=== PATIENT | female | born 1945 | race Caucasian/White ===

== ENCOUNTER 2016-07-13 16:18 | Emergency (ER) | payer OTHER ==
[~2016-07-13] VITALS: Ht 160 cm; Wt 91.2 kg
[2016-07-13 16:55] VITALS: BP 118/79
[2016-07-13] MEDS ORDERED: ASPIRIN81 M1 PO (16:59)
[2016-07-13] MEDS ORDERED: HUMALOG SL100 UNITS/ (16:59)
--- NOTE | 2016-07-13 17:05 | NUR ---
PATIENT AMBULATED TO ER BED 5.
--- NOTE | 2016-07-13 17:07 | NUR ---
Patient being evaluated by physician at bedside.
--- NOTE | 2016-07-13 17:08 | NUR ---
PT CAME TO ER DUE TO LEFT HIP PAIN X2 DAYS;OAIN SCALE OF 10/10.PT STATES SHE HAD A RT TOTAL HIP REPLACEMENT YEARS AGO.DENIES TRAUMA/CP/SOB/F/N/V/D.DENIES TINGLING OR NUMBNESS SENSATION ON LOWER LEGS.PT USES WALKER FOR AMBULATION.HX OF DM,HTN.NO ACUTE DISTRESS NOTED AT THIS TIME;NEDS ATTENDED;SAFETY PREACUTION INSTITUTED; AT BEDSIDE
--- NOTE | 2016-07-13 17:10 | NUR ---
PT REFUSED TO PUT AN IV AT THE MOMENT.
--- NOTE | 2016-07-13 17:20 | NUR ---
PT WENT TO CT ACCOMPANIED BY ASSISTANT HOUSEKEEPING MANAGER
--- NOTE | 2016-07-13 17:27 | NUR ---
Note batool in EDM - 07/13/16 at 1728 by IVANNA Patient discharged with v/s stable. Written and verbal after care instructions given and explained.Patient alert, oriented and verbalized understanding of instructions. Ambulatory with steady gait. All questions addressed prior to discharge. ID band removed. Patient advised to follow up with PMD.Opportunity to ask questions provided and answered.ENCOURAGED PT TO INCREASE FLUID INTAKE AND PT AGREED W/ IT.
--- NOTE | 2016-07-13 17:38 | NUR ---
BACK FROM CT;NO ACUTE DISTRESS NOTED AT THIS TIME;WILL CONTINUE TO MONITOR PT.
--- NOTE | 2016-07-13 18:29 | NUR ---
PT LYING ON BED; NO ACUTE DISTRESS NOTED AT THIS TIME;WILL CONTINUE TO MONITOR PT.
--- NOTE | 2016-07-13 19:16 | NUR ---
Patient discharged with v/s stable. Written and verbal after care instructions given and explained. Patient alert, oriented and verbalized understanding of instructions. Ambulatory with steady gait. All questions addressed prior to discharge. ID band removed. Patient advised to follow up with PMD. Rx of TRAMADOL given. Patient educated on indication of medication including possible reaction and side effects. Opportunity to ask questions provided and answered.ADVISED PT TO REFRAIN FROM BEARING WEIGHT ON AFFECTED HIP.
[2016-07-13 19:18] VITALS: BP 154/79
== END 2016-07-13 19:18 | disposition home or self-care (01) ==
LOC: MED 16:18
DX: M25.552 Pain in left hip (principal); Z98.890 Other specified postprocedural states

== ENCOUNTER 2017-12-07 07:35 | Emergency (ER) | payer OTHER ==
[~2017-12-07] VITALS: Ht 160 cm; Wt 87.5 kg
[~2017-12-07 07:35] MED LIST: ASPI81CT89 PO; HUMSLIDE
[2017-12-07 07:36] VITALS: BP 149/74
--- NOTE | 2017-12-07 07:36 | NUR ---
PT TAKEN BY WHEELCHAIR TO ER BED 05
--- NOTE | 2017-12-07 07:40 | NUR ---
72YO F BIB DAUGHTER IN LAW W/C/O CENTRAL LOWER BACK PAIN. PT STATES HX OF CHRONIC LBP PAIN , WITH INCREASED PAIN IN PAST WEEK DUE TO " CERTENT AMOUT OF LIFTING " WITH DISABLED . PAIN 10/05. PT DENIES ANY CP, SOB ABD PAIN, FEVER COUGH OR COLDS AT THIS TIME. PT STATE TAKING HYDROCODONE AT HOME FOR PAIN. ERMD MADE AWARE. WILL CONTINUE TO MONITOR. PT PLACED IN GOWN AND POSITIONED FOR COMFORT.
--- NOTE | 2017-12-07 07:48 | NUR ---
CONTACT INFO FOR DAUGHTER IN LAW: DANA [phone]
--- NOTE | 2017-12-07 07:50 | NUR ---
Patient being evaluated by physician at bedside.
--- NOTE | 2017-12-07 07:59 | NUR ---
PT TAKEN TO CT
--- NOTE | 2017-12-07 08:16 | NUR ---
PT RETURNED FROM CT
--- NOTE | 2017-12-07 08:24 | NUR ---
PT AMBULATED TO BATHTOMM WITH MINIMAL ASSISST
[2017-12-07] MEDS ORDERED: KETOROLAC 30 MG/ML VIAL IM ONE (08:45)
[2017-12-07] MEDS ORDERED: METHOCARBAMOL 500 MG TAB PO ONE (09:25)
--- NOTE | 2017-12-07 10:00 | NUR ---
dr pulido at bedside speaking with pt
[2017-12-07 10:10] VITALS: BP 145/76
--- NOTE | 2017-12-07 10:10 | NUR ---
Patient discharged with v/s stable. Written and verbal after care instructions given and explained. Patient alert, oriented and verbalized understanding of instructions. Ambulatory with ASSIST . All questions addressed prior to discharge. ID band removed. Patient advised to follow up with PMD. Rx of LIDOCAINE 5% TRANSDERMAL PATCH, CELEBREX, ROBAXIN given. Patient educated on indication of medication including possible reaction and side effects. Opportunity to ask questions provided and answered.
== END 2017-12-07 10:10 | disposition home or self-care (01) ==
LOC: MED 07:35
DX: M62.830 Muscle spasm of back (principal); I10 Essential (primary) hypertension; E11.9 Type 2 diabetes mellitus without complications; Z79.1 Long term (current) use of non-steroidal anti-inflammatories (NSAID)
CPT/HCPCS: 72131; 96372; 99284; J1885

== ENCOUNTER 2018-08-07 16:49 | Emergency (ER) | payer OTHER ==
[~2018-08-07] VITALS: Ht 160 cm; Wt 87.5 kg
[~2018-08-07 16:49] MED LIST changes: +ASPI-1718 PO; -ASPI81CT89 PO
[2018-08-07 17:01] VITALS: BP 103/64
[2018-08-07 18:13] LABS: BASOPHILS % (AUTO) 0.4 % (0.0-2.0); EOSINOPHILS % (AUTO) 0.5 % (0.0-4.0); HEMATOCRIT 41.1 % (36-48); HEMOGLOBIN 14.1 g/dL (12.0-16.0); LYMPHOCYTES % (AUTO) 11.7 % (20.5-51.1); MEAN CORPUSCULAR HEMOGLOBIN 31 pg (27-31); MEAN CORPUSCULAR HGB CONC 34 g/dL (33-37); MONOCYTES # (AUTO) 0.6 K/uL (0.8-1.0); MONOCYTES % (AUTO) 6.6 % (1.7-9.3); NEUTROPHILS # (AUTO) 7.2 K/uL (1.8-7.7); NEUTROPHILS % (AUTO) 80.8 % (42.2-75.2); PLATELET COUNT (AUTO) 216 K/uL (140-450); RED BLOOD CELL COUNT(AUTO) 4.62 MIL/uL (4.20-5.40); RED CELL DISTRIBUTION WIDTH 13.9 % (11.6-13.7); WHITE BLOOD COUNT (AUTO) 8.9 K/uL (4.8-10.8)
[2018-08-07 18:14] LABS: APPEARANCE,URINE CLEAR (CLEAR); BILIRUBIN,URINE NEGATIVE (NEGATIVE); BLOOD, URINE NEGATIVE (NEGATIVE); COLOR,URINE YELLOW (YELLOW); LEUKOCYTE ESTERASE ,URINE TRACE (NEGATIVE); NITRITE, URINE NEGATIVE (NEGATIVE); UGLUCOSE 2+ (NEGATIVE)
[2018-08-07 18:31] LABS: RBC,URINE 0-5 /HPF (0-5); WBC,URINE >25 (MANY) /HPF (0-5)
[2018-08-07 18:32] LABS: ALBUMIN 3.5 g/dL (3.4-5.0); ANION GAP 16.7 (8-16); ASPARTATE AMINOTRANSFERASE 22 U/L (15-37); CARBON DIOXIDE 24.3 mmol/L (21-32); CHLORIDE 102 mmol/L (98-107); CREATININE 0.7 mg/dL (0.6-1.3); GLUCOSE 295 mg/dL (74-106); LIPASE 108 U/L (73-393); SODIUM SERUM 139 mmol/L (136-145); TOTAL BILIRUBIN 0.5 mg/dL (0.0-1.0); UREA NITROGEN, BLOOD 19 mg/dL (7-18)
--- NOTE | 2018-08-07 19:15 | NUR ---
Shaw renae in [facility] - 08/07/18 at 2041 by JIMENEZ ASSUMED CARE OF PT FROM REJI BRITO
[2018-08-07 19:40] VITALS: BP 106/56
--- NOTE | 2018-08-07 20:32 | NUR ---
TO ED WITH C/O RUQ PAIN WITH NAUSEA AND VOMITTING X 5 DAYS. PT REPORTS PAIN UPON PALPATION. BOWEL SOUNDS ACTIVE TO ALL QUADRANTS. PT PLACED INTO BED, PENDING MD KELLER.
--- NOTE | 2018-08-07 22:22 | NUR ---
Patient discharged with v/s stable. Written and verbal after care instructions given and explained. Patient alert, oriented and verbalized understanding of instructions. Ambulatory with steady gait. All questions addressed prior to discharge. ID band removed. Patient advised to follow up with PMD. Rx of CIPROFLAXIN given. Patient educated on indication of medication including possible reaction and side effects. Opportunity to ask questions provided and answered.
== END 2018-08-07 22:22 | disposition home or self-care (01) ==
LOC: MED 16:49
DX: N39.0 Urinary tract infection, site not specified (principal); E11.9 Type 2 diabetes mellitus without complications; I10 Essential (primary) hypertension; Z79.4 Long term (current) use of insulin; Z79.82 Long term (current) use of aspirin
CPT/HCPCS: 36415; 80053; 81001; 83690; 85025; 87086; 99284

== ENCOUNTER 2020-01-07 04:20 | Emergency (ER) | payer OTHER ==
[~2020-01-07] VITALS: Ht 160 cm; Wt 88.5 kg
[~2020-01-07 04:20] MED LIST changes: -ASPI-1718 PO; +ASPI-1822 PO
[2020-01-07 04:35] VITALS: BP 135/57
[2020-01-07] MEDS ORDERED: IBUPROFEN 800 MG TAB PO ONE (05:10)
[2020-01-07] MEDS ORDERED: SULFAMETH/TRIMETH DS 800/160MG 1 TAB PO ONE (05:10)
--- NOTE | 2020-01-07 05:24 | NUR ---
X-Ray at bedside.
--- NOTE | 2020-01-07 05:30 | NUR ---
PT HAD SURGERY TO 3 TOES ON HER L FOOT 1 WEEK AGO, NOW SHE IS HAVING 10/10 PAIN AND STATES THERE IS DRAINAGE/DISCHARGE TO AREA. WORRIED OF POSSIBLE INFECTION. UNABLE TO PUT PRESSURE ON L FOOT DUE TO PAIN. PAIN RADIATING FROM TOES UP INTO L FOOT. SITE IS DRY, NO DRAINAGE NOTED, SUTURES INTACT, AREA LOOKS LIKE IT IS HEALING WITHOUT ISSUES. NO REDNESS TO FOOT, NO SWELLING, PALPABLE PEDAL PULSE. AREA SORE WHEN TOUCHED. AFEBRILE, NO N/V/D. BED IN LOWEST POSITION AND SIDERAIL UP X 1. NKA HX - DM, HTN
[2020-01-07 06:32] VITALS: BP 135/57
--- NOTE | 2020-01-07 06:33 | NUR ---
Patient discharged with v/s stable. Written and verbal after care instructions given and explained. Patient alert, oriented and verbalized understanding of instructions. Ambulatory with steady gait. All questions addressed prior to discharge. ID band removed. Patient advised to follow up with PMD. Rx of MOTRIN AND BACTRIM given. Patient educated on indication of medication including possible reaction and side effects. Opportunity to ask questions provided and answered.
== END 2020-01-07 06:33 | disposition home or self-care (01) ==
LOC: MED 04:20
DX: L03.115 Cellulitis of right lower limb (principal); E11.9 Type 2 diabetes mellitus without complications; I10 Essential (primary) hypertension; Z79.899 Other long term (current) drug therapy
CPT/HCPCS: 73630; 99283; Q0092

== ENCOUNTER 2020-05-03 14:34 | Inpatient (IN) | payer OTHER, SELFPAY ==
[~2020-05-03] VITALS: Ht 160 cm; Wt 90.7 kg
[2020-05-03] MEDS ORDERED: AZITHROMYCIN 500 MG in DEXTROSE 5% 250 ML IV ONE (15:30)
[2020-05-03] MEDS ORDERED: ONDANSETRON 4 MG/2 ML VIAL IVP ONE (15:30)
[2020-05-03] MEDS ORDERED: DEXAMETHASONE 4 MG/ML VIAL IVP ONE (15:30)
[2020-05-03 16:03] LABS: BASOPHILS % (AUTO) 0.6 % (0.0-2.0); HEMOGLOBIN 13.7 g/dL (12.0-16.0); LYMPHOCYTES # (AUTO) 0.5 K/uL (2.5-16.5); LYMPHOCYTES % (AUTO) 10.1 % (20.5-51.1); MEAN CORPUSCULAR HEMOGLOBIN 30 pg (27-31); MEAN CORPUSCULAR HGB CONC 34 g/dL (33-37); MEAN CORPUSCULAR VOLUME 87.2 fL (80-94); MONOCYTES # (AUTO) 0.3 K/uL (0.8-1.0); MONOCYTES % (AUTO) 6.7 % (1.7-9.3); NEUTROPHILS # (AUTO) 3.7 K/uL (1.8-7.7); NEUTROPHILS % (AUTO) 82.6 % (42.2-75.2); PLATELET COUNT (AUTO) 167 K/uL (140-450); RED BLOOD CELL COUNT(AUTO) 4.59 MIL/uL (4.20-5.40); RED CELL DISTRIBUTION WIDTH 14.7 % (11.6-13.7); WHITE BLOOD COUNT (AUTO) 4.5 K/uL (4.8-10.8)
[2020-05-03 16:23] LABS: PROTHROMBIN TIME 10.1 secs (10.8-13.4)
[2020-05-03 16:37] LABS: ALBUMIN 3.4 g/dL (3.4-5.0); ANION GAP 16.7 (8-16); ASPARTATE AMINOTRANSFERASE 39 U/L (15-37); CARBON DIOXIDE 23.7 mmol/L (21-32); CHLORIDE 97 mmol/L (98-107); CREATININE 0.8 mg/dL (0.6-1.3); GLUCOSE 178 mg/dL (74-106); LACTATE DEHYDROGENASE 332 U/L (81-234); POTASSIUM 3.4 mmol/L (3.5-5.1); SODIUM SERUM 134 mmol/L (136-145); TOTAL BILIRUBIN 0.5 mg/dL (0.0-1.0); UREA NITROGEN, BLOOD 11 mg/dL (7-18)
[2020-05-03 16:46] VITALS: BP 143/63
[2020-05-03] MEDS ORDERED: ALBUTEROL HFA MDI 90 MCG/ACTUATION 8 GM INH ONE (17:20)
[2020-05-03] MEDS ORDERED: AZITHROMYCIN 500 MG INJ VIAL IV ONE (17:38)
[2020-05-03] MEDS ORDERED: ONDANSETRON 4 MG/2 ML VIAL ONE (17:38)
[2020-05-03] MEDS ORDERED: DEXAMETHASONE 10 MG/ML VIAL ONE (17:39)
[2020-05-03] MEDS ORDERED: cefTRIAXone 1,000 MG VIAL ONE (17:39)
[2020-05-03 20:37] LABS: APPEARANCE,URINE CLEAR (CLEAR); BILIRUBIN,URINE 1+ (NEGATIVE); BLOOD, URINE NEGATIVE (NEGATIVE); COLOR,URINE YELLOW (YELLOW); LEUKOCYTE ESTERASE ,URINE NEGATIVE (NEGATIVE); NITRITE, URINE NEGATIVE (NEGATIVE); UGLUCOSE 3+ (NEGATIVE)
[2020-05-03 21:10] LABS: RBC,URINE 0-5 /HPF (0-5); WBC,URINE 0-5 /HPF (0-5); YEAST,URINE Few /HPF (None Seen)
[2020-05-03] MEDS: INSULIN LISPRO SLIDING SCALE 100 UNITS/ML VIAL SUBQ PRN (23:00)
[2020-05-03] MEDS: DEXAMETHASONE 4 MG/ML VIAL IVP SCH (23:19)
[2020-05-04] MEDS ORDERED: DAPA10TA PO (06:45)
[2020-05-04] MEDS ORDERED: HYDR25TA32 PO (06:53)
[2020-05-04] MEDS ORDERED: INSU10SU6 SUBQ (06:53)
[2020-05-04] MEDS: BLOOD GLUCOSE MONITORING 1 DEV DEV FS SCH ×4 (07:58→21:51)
[2020-05-04] MEDS: ASPIRIN 81 MG TAB.CHEW PO SCH (08:32)
[2020-05-04] MEDS: ENOXAPARIN 40 MG/0.4 ML SYR SUBQ SCH ×2 (08:33→21:53)
[2020-05-04] MEDS: INSULIN LISPRO SLIDING SCALE 100 UNITS/ML VIAL SUBQ PRN ×3 (08:34→16:45)
[2020-05-04 09:54] LABS: BASOPHILS % (AUTO) 0.1 % (0.0-2.0); HEMATOCRIT 40.7 % (36-48); HEMOGLOBIN 13.7 g/dL (12.0-16.0); LYMPHOCYTES # (AUTO) 0.4 K/uL (2.5-16.5); LYMPHOCYTES % (AUTO) 16.9 % (20.5-51.1); MEAN CORPUSCULAR HEMOGLOBIN 30 pg (27-31); MEAN CORPUSCULAR HGB CONC 34 g/dL (33-37); MEAN CORPUSCULAR VOLUME 87.8 fL (80-94); MONOCYTES # (AUTO) 0.1 K/uL (0.8-1.0); MONOCYTES % (AUTO) 3.6 % (1.7-9.3); NEUTROPHILS # (AUTO) 1.8 K/uL (1.8-7.7); NEUTROPHILS % (AUTO) 79.4 % (42.2-75.2); PLATELET COUNT (AUTO) 169 K/uL (140-450); RED BLOOD CELL COUNT(AUTO) 4.63 MIL/uL (4.20-5.40); RED CELL DISTRIBUTION WIDTH 14.5 % (11.6-13.7); WHITE BLOOD COUNT (AUTO) 2.3 K/uL (4.8-10.8)
[2020-05-04] MEDS ORDERED: CARV25TA PO (10:38)
[2020-05-04] MEDS ORDERED: METH750T9 PO (10:38)
[2020-05-04] MEDS ORDERED: ATOR20TA PO (10:38)
[2020-05-04] MEDS ORDERED: LON10 PO (10:38)
[2020-05-04] MEDS ORDERED: GABA300C PO (10:38)
[2020-05-04] MEDS ORDERED: LOSA50TA57 PO (10:38)
[2020-05-04] MEDS ORDERED: HYDR-1098 PO (10:38)
[2020-05-04] MEDS ORDERED: AMLO10TA PO (10:38)
[2020-05-04 10:49] LABS: ASPARTATE AMINOTRANSFERASE 35 U/L (15-37); CARBON DIOXIDE 25.8 mmol/L (21-32); CHLORIDE 101 mmol/L (98-107); CREATININE 0.7 mg/dL (0.6-1.3); GLUCOSE 253 mg/dL (74-106); MAGNESIUM 1.8 mg/dL (1.8-2.4); POTASSIUM 3.8 mmol/L (3.5-5.1); SODIUM SERUM 136 mmol/L (136-145); TOTAL BILIRUBIN 0.3 mg/dL (0.0-1.0); UREA NITROGEN, BLOOD 17 mg/dL (7-18)
[2020-05-04] MEDS: guaiFENesin DM 200/20 MG-10 ML 10 ML UDC PO PRN (13:03)
[2020-05-04] MEDS ORDERED: cefTRIAXone 1,000 MG VIAL ONE (14:40)
[2020-05-04] MEDS ORDERED: AZITHROMYCIN 500 MG INJ VIAL IV ONE (15:17)
[2020-05-04] MEDS: AZITHROMYCIN 500 MG in DEXTROSE 5% 250 ML IV SCH (15:26)
[2020-05-04] MEDS ORDERED: CLONIDINE HYDROCHLORIDE 0.1 MG TAB PO PRN (20:55)
[2020-05-04] MEDS: DEXAMETHASONE 4 MG/ML VIAL IVP SCH (21:56)
[2020-05-05] MEDS: BLOOD GLUCOSE MONITORING 1 DEV DEV FS SCH ×4 (07:30→20:57)
[2020-05-05] MEDS ORDERED: INSULIN LANTUS 100 UNITS/ML 10 ML VIAL SUBQ SCH (09:00)
[2020-05-05] MEDS: ASPIRIN 81 MG TAB.CHEW PO SCH (09:28)
[2020-05-05] MEDS: ENOXAPARIN 40 MG/0.4 ML SYR SUBQ SCH (09:57)
[2020-05-05] MEDS: INSULIN LISPRO SLIDING SCALE 100 UNITS/ML VIAL SUBQ PRN ×4 (09:59→21:01)
[2020-05-05] MEDS ORDERED: PHARMACY TO DOSE MC PRN (13:50)
[2020-05-05] MEDS ORDERED: remdesivir CLINICAL MONITORING 1 EA MISC MC PRN (14:05)
[2020-05-05] MEDS ORDERED: cefTRIAXone 1,000 MG VIAL ONE (15:14)
[2020-05-05] MEDS ORDERED: AZITHROMYCIN 500 MG INJ VIAL IV ONE (15:15)
[2020-05-05] MEDS: AZITHROMYCIN 500 MG in DEXTROSE 5% 250 ML IV SCH (15:34)
[2020-05-05] MEDS ORDERED: REMDESIVIR (EUA) 200 MG in NACL 0.9% 100 ML IV SCH (17:00)
[2020-05-05 17:57] LABS: BASOPHILS % (AUTO) 0.5 % (0.0-2.0); HEMATOCRIT 38.8 % (36-48); HEMOGLOBIN 13.3 g/dL (12.0-16.0); LYMPHOCYTES # (AUTO) 0.6 K/uL (2.5-16.5); LYMPHOCYTES % (AUTO) 6.7 % (20.5-51.1); MEAN CORPUSCULAR HEMOGLOBIN 30 pg (27-31); MEAN CORPUSCULAR HGB CONC 34 g/dL (33-37); MEAN CORPUSCULAR VOLUME 86.4 fL (80-94); MONOCYTES # (AUTO) 0.5 K/uL (0.8-1.0); MONOCYTES % (AUTO) 4.8 % (1.7-9.3); NEUTROPHILS # (AUTO) 8.4 K/uL (1.8-7.7); PLATELET COUNT (AUTO) 218 K/uL (140-450); RED CELL DISTRIBUTION WIDTH 14.7 % (11.6-13.7); WHITE BLOOD COUNT (AUTO) 9.6 K/uL (4.8-10.8)
[2020-05-05 18:15] LABS: ALBUMIN 2.7 g/dL (3.4-5.0); ANION GAP 10.1 (8-16); ASPARTATE AMINOTRANSFERASE 38 U/L (15-37); CARBON DIOXIDE 28.3 mmol/L (21-32); CHLORIDE 101 mmol/L (98-107); CREATININE 0.7 mg/dL (0.6-1.3); GLUCOSE 213 mg/dL (74-106); POTASSIUM 3.4 mmol/L (3.5-5.1); SODIUM SERUM 136 mmol/L (136-145); TOTAL BILIRUBIN 0.4 mg/dL (0.0-1.0); UREA NITROGEN, BLOOD 15 mg/dL (7-18)
[2020-05-05] MEDS: ENOXAPARIN 80 MG/0.8 ML SYR SUBQ SCH (21:04)
[2020-05-05] MEDS ORDERED: guaiFENesin/CODEINE 100/10MG 5 ML UDC ONE (21:34)
[2020-05-05] MEDS: guaiFENesin DM 200/20 MG-10 ML 10 ML UDC PO PRN (21:39)
[2020-05-05] MEDS: DEXAMETHASONE 4 MG/ML VIAL IVP SCH (23:07)
[2020-05-06 01:00] VITALS: BP 157/62
[2020-05-06] MEDS: INSULIN LISPRO SLIDING SCALE 100 UNITS/ML VIAL SUBQ PRN ×3 (07:11→17:33)
[2020-05-06] MEDS: BLOOD GLUCOSE MONITORING 1 DEV DEV FS SCH ×4 (07:18→21:31)
[2020-05-06 08:00] VITALS: BP 152/60
[2020-05-06] MEDS ORDERED: INSULIN LANTUS 100 UNITS/ML 10 ML VIAL SUBQ SCH (09:00)
[2020-05-06 09:54] LABS: BASOPHILS % (AUTO) 0.1 % (0.0-2.0); HEMATOCRIT 38.6 % (36-48); HEMOGLOBIN 13.3 g/dL (12.0-16.0); LYMPHOCYTES # (AUTO) 0.4 K/uL (2.5-16.5); LYMPHOCYTES % (AUTO) 3.9 % (20.5-51.1); MEAN CORPUSCULAR HEMOGLOBIN 30 pg (27-31); MEAN CORPUSCULAR HGB CONC 34 g/dL (33-37); MEAN CORPUSCULAR VOLUME 86.8 fL (80-94); MONOCYTES # (AUTO) 0.2 K/uL (0.8-1.0); PLATELET COUNT (AUTO) 226 K/uL (140-450); RED BLOOD CELL COUNT(AUTO) 4.45 MIL/uL (4.20-5.40); RED CELL DISTRIBUTION WIDTH 14.7 % (11.6-13.7); WHITE BLOOD COUNT (AUTO) 9.6 K/uL (4.8-10.8)
[2020-05-06] MEDS: ENOXAPARIN 80 MG/0.8 ML SYR SUBQ SCH ×2 (10:04→21:31)
[2020-05-06 10:15] LABS: ALBUMIN 2.6 g/dL (3.4-5.0); ANION GAP 13.2 (8-16); ASPARTATE AMINOTRANSFERASE 39 U/L (15-37); CARBON DIOXIDE 27.3 mmol/L (21-32); CHLORIDE 100 mmol/L (98-107); CHOL/HDL RATIO 3.3 (1-4.5); CREATININE 0.6 mg/dL (0.6-1.3); GLUCOSE 284 mg/dL (74-106); HDL CHOLESTEROL 49 mg/dL (40-60); LDL (CALC) 98 mg/dL (60-100); POTASSIUM 3.5 mmol/L (3.5-5.1); SODIUM SERUM 137 mmol/L (136-145); TOTAL BILIRUBIN 0.4 mg/dL (0.0-1.0); TRIGLYCERIDES 70 mg/dL (30-150); UREA NITROGEN, BLOOD 13 mg/dL (7-18)
[2020-05-06 11:00] LABS: ALBUMIN 2.6 g/dL (3.4-5.0); BILIRUBIN,DIRECT 0.1 mg/dL (0.0-0.3); TOTAL BILIRUBIN 0.4 mg/dL (0.0-1.0)
[2020-05-06 12:00] VITALS: BP 151/53
[2020-05-06 16:00] VITALS: BP 149/64
[2020-05-06] MEDS: REMDESIVIR (EUA) 100 MG in NACL 0.9% 100 ML IV SCH (17:28)
[2020-05-06 20:00] VITALS: BP 133/69
[2020-05-06] MEDS: DEXAMETHASONE 4 MG/ML VIAL IVP SCH (22:55)
[2020-05-06] MEDS: guaiFENesin DM 200/20 MG-10 ML 10 ML UDC PO PRN (23:15)
[2020-05-07] VITALS: BP 157/63
[2020-05-07] MEDS: guaiFENesin DM 200/20 MG-10 ML 10 ML UDC PO PRN (01:04)
[2020-05-07 04:00] VITALS: BP 133/78
[2020-05-07] MEDS: INSULIN LISPRO SLIDING SCALE 100 UNITS/ML VIAL SUBQ PRN ×2 (06:48→12:48)
[2020-05-07] MEDS: BLOOD GLUCOSE MONITORING 1 DEV DEV FS SCH ×4 (06:48→21:32)
[2020-05-07 08:00] VITALS: BP 148/65
[2020-05-07] MEDS: ENOXAPARIN 80 MG/0.8 ML SYR SUBQ SCH ×2 (08:43→21:23)
[2020-05-07] MEDS ORDERED: INSULIN LANTUS 100 UNITS/ML 10 ML VIAL SUBQ SCH (09:00)
[2020-05-07 09:05] LABS: ALBUMIN 2.4 g/dL (3.4-5.0); BILIRUBIN,DIRECT 0.2 mg/dL (0.0-0.3); TOTAL BILIRUBIN 0.5 mg/dL (0.0-1.0)
[2020-05-07 09:06] LABS: HEMATOCRIT 38.7 % (36-48); HEMOGLOBIN 13.5 g/dL (12.0-16.0); LYMPHOCYTES # (AUTO) 0.3 K/uL (2.5-16.5); LYMPHOCYTES % (AUTO) 3.1 % (20.5-51.1); MEAN CORPUSCULAR HEMOGLOBIN 30 pg (27-31); MEAN CORPUSCULAR HGB CONC 35 g/dL (33-37); MONOCYTES # (AUTO) 0.2 K/uL (0.8-1.0); MONOCYTES % (AUTO) 2.2 % (1.7-9.3); NEUTROPHILS # (AUTO) 9.7 K/uL (1.8-7.7); NEUTROPHILS % (AUTO) 94.7 % (42.2-75.2); PLATELET COUNT (AUTO) 251 K/uL (140-450); RED CELL DISTRIBUTION WIDTH 14.6 % (11.6-13.7); WHITE BLOOD COUNT (AUTO) 10.3 K/uL (4.8-10.8)
[2020-05-07 09:16] LABS: ALBUMIN 2.3 g/dL (3.4-5.0); ANION GAP 10.5 (8-16); ASPARTATE AMINOTRANSFERASE 43 U/L (15-37); CHLORIDE 101 mmol/L (98-107); CREATININE 0.7 mg/dL (0.6-1.3); GLUCOSE 265 mg/dL (74-106); POTASSIUM 3.5 mmol/L (3.5-5.1); SODIUM SERUM 137 mmol/L (136-145); TOTAL BILIRUBIN 0.5 mg/dL (0.0-1.0); UREA NITROGEN, BLOOD 12 mg/dL (7-18)
[2020-05-07 12:00] VITALS: BP 148/49
[2020-05-07 16:00] VITALS: BP 159/60
[2020-05-07] MEDS: REMDESIVIR (EUA) 100 MG in NACL 0.9% 100 ML IV SCH (16:56)
[2020-05-07 20:00] VITALS: BP 160/66
[2020-05-07] MEDS: DEXAMETHASONE 4 MG/ML VIAL IVP SCH (22:28)
[2020-05-08] VITALS: BP 148/77
[2020-05-08] MEDS ORDERED: ONDANSETRON 4 MG/2 ML VIAL IVP PRN (00:15)
[2020-05-08] MEDS ORDERED: ACETAMINOPHEN 650 MG/20.3 ML UDC PO PRN (00:15)
[2020-05-08] MEDS: HYDROcodone/APAP 5/325 MG 1 TAB TAB PO PRN ×3 (00:33→22:37)
[2020-05-08 04:00] VITALS: BP 158/48
[2020-05-08] MEDS: BLOOD GLUCOSE MONITORING 1 DEV DEV FS SCH ×4 (06:32→21:00)
[2020-05-08] MEDS: INSULIN LISPRO SLIDING SCALE 100 UNITS/ML VIAL SUBQ PRN ×2 (06:33→13:16)
[2020-05-08 08:00] VITALS: BP 148/69
[2020-05-08 08:07] LABS: BASOPHILS % (AUTO) 0.2 % (0.0-2.0); HEMATOCRIT 40.2 % (36-48); HEMOGLOBIN 13.7 g/dL (12.0-16.0); LYMPHOCYTES # (AUTO) 0.3 K/uL (2.5-16.5); LYMPHOCYTES % (AUTO) 2.8 % (20.5-51.1); MEAN CORPUSCULAR HEMOGLOBIN 29 pg (27-31); MEAN CORPUSCULAR HGB CONC 34 g/dL (33-37); MEAN CORPUSCULAR VOLUME 85.8 fL (80-94); MONOCYTES # (AUTO) 0.2 K/uL (0.8-1.0); MONOCYTES % (AUTO) 2.1 % (1.7-9.3); NEUTROPHILS # (AUTO) 9.4 K/uL (1.8-7.7); NEUTROPHILS % (AUTO) 94.9 % (42.2-75.2); PLATELET COUNT (AUTO) 230 K/uL (140-450); RED BLOOD CELL COUNT(AUTO) 4.68 MIL/uL (4.20-5.40); RED CELL DISTRIBUTION WIDTH 14.6 % (11.6-13.7); WHITE BLOOD COUNT (AUTO) 9.9 K/uL (4.8-10.8)
[2020-05-08 08:20] LABS: ALBUMIN 2.3 g/dL (3.4-5.0); ANION GAP 13.3 (8-16); ASPARTATE AMINOTRANSFERASE 51 U/L (15-37); CARBON DIOXIDE 27.4 mmol/L (21-32); CHLORIDE 107 mmol/L (98-107); CREATININE 0.6 mg/dL (0.6-1.3); GLUCOSE 279 mg/dL (74-106); POTASSIUM 3.7 mmol/L (3.5-5.1); SODIUM SERUM 144 mmol/L (136-145); TOTAL BILIRUBIN 0.7 mg/dL (0.0-1.0); UREA NITROGEN, BLOOD 17 mg/dL (7-18)
[2020-05-08 08:29] LABS: ALBUMIN 2.3 g/dL (3.4-5.0); BILIRUBIN,DIRECT 0.2 mg/dL (0.0-0.3); TOTAL BILIRUBIN 0.7 mg/dL (0.0-1.0)
[2020-05-08] MEDS: INSULIN LANTUS 100 UNITS/ML 10 ML VIAL SUBQ SCH (09:41)
[2020-05-08] MEDS: ENOXAPARIN 80 MG/0.8 ML SYR SUBQ SCH ×2 (09:43→21:00)
[2020-05-08] MEDS ORDERED: BENZONATATE 100 MG CAPLF PO PRN (11:20)
[2020-05-08 12:00] VITALS: BP 153/84
[2020-05-08 16:00] VITALS: BP 148/79
[2020-05-08] MEDS: REMDESIVIR (EUA) 100 MG in NACL 0.9% 100 ML IV SCH (17:52)
[2020-05-08 20:00] VITALS: BP 161/57
[2020-05-08] MEDS: DEXAMETHASONE 4 MG/ML VIAL IVP SCH (23:22)
[2020-05-09] VITALS (9 sets, daily range): BP systolic 115–189; BP diastolic 57–79
[2020-05-09] MEDS: BLOOD GLUCOSE MONITORING 1 DEV DEV FS SCH ×4 (06:34→20:46)
[2020-05-09 08:44] LABS: BASOPHILS # (AUTO) 0.1 K/uL (0.00-0.22); BASOPHILS % (AUTO) 0.7 % (0.0-2.0); EOSINOPHILS % (AUTO) 0.2 % (0.0-4.0); HEMATOCRIT 39.2 % (36-48); HEMOGLOBIN 13.5 g/dL (12.0-16.0); LYMPHOCYTES # (AUTO) 0.2 K/uL (2.5-16.5); LYMPHOCYTES % (AUTO) 2.1 % (20.5-51.1); MEAN CORPUSCULAR HEMOGLOBIN 30 pg (27-31); MEAN CORPUSCULAR HGB CONC 34 g/dL (33-37); MEAN CORPUSCULAR VOLUME 86.1 fL (80-94); MONOCYTES # (AUTO) 0.2 K/uL (0.8-1.0); MONOCYTES % (AUTO) 1.7 % (1.7-9.3); NEUTROPHILS % (AUTO) 95.3 % (42.2-75.2); PLATELET COUNT (AUTO) 212 K/uL (140-450); RED BLOOD CELL COUNT(AUTO) 4.55 MIL/uL (4.20-5.40); RED CELL DISTRIBUTION WIDTH 14.6 % (11.6-13.7); WHITE BLOOD COUNT (AUTO) 9.4 K/uL (4.8-10.8)
[2020-05-09] MEDS: ENOXAPARIN 80 MG/0.8 ML SYR SUBQ SCH ×2 (09:43→20:51)
[2020-05-09] MEDS: INSULIN LANTUS 100 UNITS/ML 10 ML VIAL SUBQ SCH (09:45)
[2020-05-09 10:34] LABS: ALBUMIN 2.1 g/dL (3.4-5.0); BILIRUBIN,DIRECT 0.3 mg/dL (0.0-0.3); TOTAL BILIRUBIN 0.8 mg/dL (0.0-1.0)
[2020-05-09 12:10] LABS: ALBUMIN 2.2 g/dL (3.4-5.0); ANION GAP 16.6 (8-16); ASPARTATE AMINOTRANSFERASE 73 U/L (15-37); CARBON DIOXIDE 23.5 mmol/L (21-32); CHLORIDE 100 mmol/L (98-107); CREATININE 0.7 mg/dL (0.6-1.3); GLUCOSE 294 mg/dL (74-106); POTASSIUM 4.1 mmol/L (3.5-5.1); SODIUM SERUM 136 mmol/L (136-145); TOTAL BILIRUBIN 0.8 mg/dL (0.0-1.0); UREA NITROGEN, BLOOD 19 mg/dL (7-18)
[2020-05-09] MEDS: INSULIN LISPRO SLIDING SCALE 100 UNITS/ML VIAL SUBQ PRN (13:50)
[2020-05-09] MEDS: REMDESIVIR (EUA) 100 MG in NACL 0.9% 100 ML IV SCH (17:00)
[2020-05-09] MEDS: DEXAMETHASONE 4 MG/ML VIAL IVP SCH (20:48)
[2020-05-09] MEDS: HYDROcodone/APAP 5/325 MG 1 TAB TAB PO PRN (20:59)
[2020-05-09] MEDS ORDERED: ALPRAZolam 0.25 MG TAB PO PRN (23:25)
[2020-05-09] MEDS ORDERED: ALPRAZolam 0.25 MG TAB ONE (23:25)
[2020-05-10] VITALS: BP 105/64
[2020-05-10 04:00] VITALS: BP 107/57
[2020-05-10] MEDS: BLOOD GLUCOSE MONITORING 1 DEV DEV FS SCH ×4 (06:27→21:36)
[2020-05-10] MEDS: INSULIN LISPRO SLIDING SCALE 100 UNITS/ML VIAL SUBQ PRN ×2 (06:28→21:40)
[2020-05-10 08:49] LABS: BASOPHILS # (AUTO) 0.1 K/uL (0.00-0.22); BASOPHILS % (AUTO) 0.6 % (0.0-2.0); EOSINOPHILS # (AUTO) 0.1 K/uL (0-0.4); EOSINOPHILS % (AUTO) 0.6 % (0.0-4.0); HEMATOCRIT 41.7 % (36-48); HEMOGLOBIN 14.2 g/dL (12.0-16.0); LYMPHOCYTES # (AUTO) 0.3 K/uL (2.5-16.5); LYMPHOCYTES % (AUTO) 2.9 % (20.5-51.1); MEAN CORPUSCULAR HEMOGLOBIN 30 pg (27-31); MEAN CORPUSCULAR HGB CONC 34 g/dL (33-37); MEAN CORPUSCULAR VOLUME 86.9 fL (80-94); MONOCYTES # (AUTO) 0.3 K/uL (0.8-1.0); MONOCYTES % (AUTO) 2.6 % (1.7-9.3); NEUTROPHILS # (AUTO) 9.2 K/uL (1.8-7.7); NEUTROPHILS % (AUTO) 93.3 % (42.2-75.2); PLATELET COUNT (AUTO) 183 K/uL (140-450); RED BLOOD CELL COUNT(AUTO) 4.79 MIL/uL (4.20-5.40); RED CELL DISTRIBUTION WIDTH 14.8 % (11.6-13.7); WHITE BLOOD COUNT (AUTO) 9.8 K/uL (4.8-10.8)
[2020-05-10] MEDS: INSULIN LANTUS 100 UNITS/ML 10 ML VIAL SUBQ SCH (09:00)
[2020-05-10] MEDS: ENOXAPARIN 80 MG/0.8 ML SYR SUBQ SCH ×2 (09:00→21:27)
[2020-05-10 09:33] LABS: ALBUMIN 2.3 g/dL (3.4-5.0); ANION GAP 15.1 (8-16); ASPARTATE AMINOTRANSFERASE 73 U/L (15-37); CARBON DIOXIDE 25.5 mmol/L (21-32); CHLORIDE 102 mmol/L (98-107); CREATININE 0.7 mg/dL (0.6-1.3); GLUCOSE 271 mg/dL (74-106); POTASSIUM 3.6 mmol/L (3.5-5.1); SODIUM SERUM 139 mmol/L (136-145); TOTAL BILIRUBIN 0.8 mg/dL (0.0-1.0); UREA NITROGEN, BLOOD 21 mg/dL (7-18)
[2020-05-10] MEDS: HYDROcodone/APAP 5/325 MG 1 TAB TAB PO PRN (13:34)
[2020-05-10 15:40] VITALS: BP 134/74
[2020-05-10 20:00] VITALS: BP 148/79
[2020-05-10] MEDS: DEXAMETHASONE 4 MG/ML VIAL IVP SCH (23:45)
[2020-05-11] VITALS: BP 102/63
[2020-05-11 04:00] VITALS: BP 121/82
[2020-05-11] MEDS: BLOOD GLUCOSE MONITORING 1 DEV DEV FS SCH ×4 (06:07→21:20)
[2020-05-11] MEDS: INSULIN LISPRO SLIDING SCALE 100 UNITS/ML VIAL SUBQ PRN ×3 (06:08→18:45)
[2020-05-11 08:00] VITALS: BP 116/76
[2020-05-11] MEDS: ENOXAPARIN 80 MG/0.8 ML SYR SUBQ SCH ×2 (10:15→21:14)
[2020-05-11] MEDS: INSULIN LANTUS 100 UNITS/ML 10 ML VIAL SUBQ SCH (10:17)
[2020-05-11 12:00] VITALS: BP 131/77
[2020-05-11 16:00] VITALS: BP 99/74
[2020-05-11 20:00] VITALS: BP 112/77
[2020-05-11] MEDS: DEXAMETHASONE 4 MG/ML VIAL IVP SCH (22:23)
[2020-05-12] VITALS (10 sets, daily range): BP systolic 104–153; BP diastolic 72–95
[2020-05-12] MEDS: BLOOD GLUCOSE MONITORING 1 DEV DEV FS SCH ×4 (06:37→21:00)
[2020-05-12] MEDS: INSULIN LISPRO SLIDING SCALE 100 UNITS/ML VIAL SUBQ PRN ×2 (06:39→12:06)
[2020-05-12] MEDS: ENOXAPARIN 80 MG/0.8 ML SYR SUBQ SCH ×2 (09:42→21:00)
[2020-05-12] MEDS: INSULIN LANTUS 100 UNITS/ML 10 ML VIAL SUBQ SCH (09:54)
[2020-05-12] MEDS ORDERED: LORazepam 2 MG/ML VIAL IVP PRN (11:45)
[2020-05-12] MEDS: ACETAMINOPHEN 650 MG SUPP RC PRN (12:10)
[2020-05-12] MEDS: DEXAMETHASONE 4 MG/ML VIAL IVP SCH (22:15)
[2020-05-12] MEDS: DEXMEDETOMIDINE HCL 200 MCG in NACL 0.9% 48 ML IV PRN (23:12)
[2020-05-13] VITALS (22 sets, daily range): BP systolic 73–132; BP diastolic 48–94
[2020-05-13] MEDS ORDERED: DEXT 5% /NACL 0.9% 1,000 ML IV SCH (02:30)
[2020-05-13] MEDS: DEXMEDETOMIDINE HCL 200 MCG in NACL 0.9% 48 ML IV PRN ×4 (02:52→22:54)
[2020-05-13] MEDS: BLOOD GLUCOSE MONITORING 1 DEV DEV FS SCH ×4 (05:51→21:00)
[2020-05-13] MEDS: INSULIN LISPRO SLIDING SCALE 100 UNITS/ML VIAL SUBQ PRN ×4 (05:52→18:12)
[2020-05-13 06:51] LABS: BASOPHILS % (AUTO) 0.1 % (0.0-2.0); HEMATOCRIT 44.5 % (36-48); HEMOGLOBIN 14.5 g/dL (12.0-16.0); LYMPHOCYTES # (AUTO) 0.3 K/uL (2.5-16.5); LYMPHOCYTES % (AUTO) 1.8 % (20.5-51.1); MEAN CORPUSCULAR HEMOGLOBIN 30 pg (27-31); MEAN CORPUSCULAR HGB CONC 33 g/dL (33-37); MEAN CORPUSCULAR VOLUME 90.5 fL (80-94); MONOCYTES # (AUTO) 0.1 K/uL (0.8-1.0); MONOCYTES % (AUTO) 0.6 % (1.7-9.3); NEUTROPHILS # (AUTO) 15.8 K/uL (1.8-7.7); NEUTROPHILS % (AUTO) 97.5 % (42.2-75.2); PLATELET COUNT (AUTO) 239 K/uL (140-450); RED BLOOD CELL COUNT(AUTO) 4.92 MIL/uL (4.20-5.40); WHITE BLOOD COUNT (AUTO) 16.2 K/uL (4.8-10.8)
[2020-05-13 07:07] LABS: ALBUMIN 1.8 g/dL (3.4-5.0); ANION GAP 14.2 (8-16); ASPARTATE AMINOTRANSFERASE 125 U/L (15-37); CARBON DIOXIDE 26.6 mmol/L (21-32); CHLORIDE 123 mmol/L (98-107); CREATININE 1.4 mg/dL (0.6-1.3); GLUCOSE 357 mg/dL (74-106); MAGNESIUM 2.8 mg/dL (1.8-2.4); PHOSPHORUS 4.3 mg/dL (2.5-4.9); POTASSIUM 4.8 mmol/L (3.5-5.1); TOTAL BILIRUBIN 0.5 mg/dL (0.0-1.0); UREA NITROGEN, BLOOD 52 mg/dL (7-18)
[2020-05-13 08:18] LABS: SODIUM SERUM 159 mmol/L (136-145)
[2020-05-13] MEDS: ENOXAPARIN 80 MG/0.8 ML SYR SUBQ SCH ×2 (08:40→22:08)
[2020-05-13] MEDS: INSULIN LANTUS 100 UNITS/ML 10 ML VIAL SUBQ SCH (08:41)
[2020-05-13] MEDS: NOREPINEPHRINE 8 MG in DEXTROSE 5% 250 ML IV PRN ×2 (10:02→19:28)
[2020-05-13] MEDS: NACL 0.45% 1,000 ML IV SCH (11:10)
[2020-05-13] MEDS: ALBUMIN HUMAN 25% 100 ML IV SCH (22:09)
[2020-05-13] MEDS: DEXAMETHASONE 4 MG/ML VIAL IVP SCH (22:09)
[2020-05-14] VITALS (27 sets, daily range): BP systolic 62–153; BP diastolic 45–88
[2020-05-14] MEDS ORDERED: NOREPINEPHRINE 4 MG/4 ML VIAL IV ONE (02:16)
[2020-05-14] MEDS: NOREPINEPHRINE 8 MG in DEXTROSE 5% 250 ML IV PRN ×4 (02:20→21:33)
[2020-05-14] MEDS: NACL 0.45% 1,000 ML IV SCH ×3 (03:50→21:05)
[2020-05-14 06:12] LABS: BASOPHILS # (AUTO) 0.2 K/uL (0.00-0.22); BASOPHILS % (AUTO) 0.7 % (0.0-2.0); HEMATOCRIT 42.3 % (36-48); HEMOGLOBIN 13.7 g/dL (12.0-16.0); LYMPHOCYTES # (AUTO) 0.6 K/uL (2.5-16.5); MEAN CORPUSCULAR HEMOGLOBIN 29 pg (27-31); MEAN CORPUSCULAR HGB CONC 32 g/dL (33-37); MEAN CORPUSCULAR VOLUME 89.3 fL (80-94); MONOCYTES # (AUTO) 0.6 K/uL (0.8-1.0); MONOCYTES % (AUTO) 2.5 % (1.7-9.3); NEUTROPHILS # (AUTO) 23.1 K/uL (1.8-7.7); PLATELET COUNT (AUTO) 230 K/uL (140-450); RED BLOOD CELL COUNT(AUTO) 4.73 MIL/uL (4.20-5.40); RED CELL DISTRIBUTION WIDTH 15.7 % (11.6-13.7); WHITE BLOOD COUNT (AUTO) 24.4 K/uL (4.8-10.8)
[2020-05-14 06:35] LABS: LYMPHOCYTES % (AUTO) 2.5 % (20.5-51.1); NEUTROPHILS % (AUTO) 94.3 % (42.2-75.2)
[2020-05-14 06:53] LABS: ALBUMIN 2.4 g/dL (3.4-5.0); ASPARTATE AMINOTRANSFERASE 266 U/L (15-37); CHLORIDE 120 mmol/L (98-107); GLUCOSE 277 mg/dL (74-106); MAGNESIUM 2.7 mg/dL (1.8-2.4); PHOSPHORUS 1.9 mg/dL (2.5-4.9); POTASSIUM 4.1 mmol/L (3.5-5.1); SODIUM SERUM 154 mmol/L (136-145); TOTAL BILIRUBIN 1.2 mg/dL (0.0-1.0); UREA NITROGEN, BLOOD 40 mg/dL (7-18)
[2020-05-14 07:02] LABS: CARBON DIOXIDE 23.2 mmol/L (21-32)
[2020-05-14 07:08] LABS: ANION GAP 14.9 (8-16)
[2020-05-14] MEDS: BLOOD GLUCOSE MONITORING 1 DEV DEV FS SCH ×4 (07:30→20:32)
[2020-05-14] MEDS: ENOXAPARIN 80 MG/0.8 ML SYR SUBQ SCH ×2 (08:51→21:08)
[2020-05-14] MEDS: INSULIN LANTUS 100 UNITS/ML 10 ML VIAL SUBQ SCH (08:53)
[2020-05-14] MEDS: INSULIN LISPRO SLIDING SCALE 100 UNITS/ML VIAL SUBQ PRN ×2 (08:55→12:17)
[2020-05-14] MEDS: ALBUMIN HUMAN 25% 100 ML IV SCH ×2 (08:56→21:07)
[2020-05-14] MEDS: DEXMEDETOMIDINE HCL 200 MCG in NACL 0.9% 48 ML IV PRN ×3 (08:57→23:04)
[2020-05-14] MEDS: metroNIDAZOLE 500 MG/NS PREMIX 100 ML IV SCH ×2 (12:22→21:07)
[2020-05-14] MEDS: DEXAMETHASONE 4 MG/ML VIAL IVP SCH (21:08)
[2020-05-15] VITALS (25 sets, daily range): BP systolic 108–144; BP diastolic 62–88
[2020-05-15] MEDS ORDERED: NOREPINEPHRINE 4 MG/4 ML VIAL IV ONE (05:01)
[2020-05-15] MEDS: DEXMEDETOMIDINE HCL 200 MCG in NACL 0.9% 48 ML IV PRN ×2 (05:09→10:16)
[2020-05-15] MEDS: metroNIDAZOLE 500 MG/NS PREMIX 100 ML IV SCH ×3 (05:09→20:48)
[2020-05-15] MEDS: NOREPINEPHRINE 8 MG in DEXTROSE 5% 250 ML IV PRN ×2 (05:09→10:18)
[2020-05-15 06:13] LABS: BASOPHILS # (AUTO) 0.1 K/uL (0.00-0.22); BASOPHILS % (AUTO) 0.4 % (0.0-2.0); HEMATOCRIT 38.7 % (36-48); HEMOGLOBIN 12.8 g/dL (12.0-16.0); LYMPHOCYTES # (AUTO) 0.4 K/uL (2.5-16.5); LYMPHOCYTES % (AUTO) 1.9 % (20.5-51.1); MEAN CORPUSCULAR HEMOGLOBIN 29 pg (27-31); MEAN CORPUSCULAR HGB CONC 33 g/dL (33-37); MEAN CORPUSCULAR VOLUME 88.4 fL (80-94); MONOCYTES # (AUTO) 0.5 K/uL (0.8-1.0); MONOCYTES % (AUTO) 2.7 % (1.7-9.3); NEUTROPHILS # (AUTO) 18.1 K/uL (1.8-7.7); PLATELET COUNT (AUTO) 169 K/uL (140-450); RED BLOOD CELL COUNT(AUTO) 4.38 MIL/uL (4.20-5.40); RED CELL DISTRIBUTION WIDTH 15.4 % (11.6-13.7); WHITE BLOOD COUNT (AUTO) 19.1 K/uL (4.8-10.8)
[2020-05-15 06:25] LABS: ALBUMIN 3.1 g/dL (3.4-5.0); ANION GAP 17.7 (8-16); ASPARTATE AMINOTRANSFERASE 227 U/L (15-37); CARBON DIOXIDE 26.2 mmol/L (21-32); CHLORIDE 113 mmol/L (98-107); GLUCOSE 227 mg/dL (74-106); MAGNESIUM 1.9 mg/dL (1.8-2.4); PHOSPHORUS 1.7 mg/dL (2.5-4.9); POTASSIUM 3.9 mmol/L (3.5-5.1); SODIUM SERUM 153 mmol/L (136-145); TOTAL BILIRUBIN 1.7 mg/dL (0.0-1.0); UREA NITROGEN, BLOOD 21 mg/dL (7-18)
[2020-05-15] MEDS: INSULIN LISPRO SLIDING SCALE 100 UNITS/ML VIAL SUBQ PRN ×2 (07:06→12:21)
[2020-05-15] MEDS: BLOOD GLUCOSE MONITORING 1 DEV DEV FS SCH ×4 (07:07→20:50)
[2020-05-15] MEDS: ALBUMIN HUMAN 25% 100 ML IV SCH ×2 (08:14→20:50)
[2020-05-15] MEDS: ENOXAPARIN 80 MG/0.8 ML SYR SUBQ SCH ×2 (08:14→20:50)
[2020-05-15] MEDS: INSULIN LANTUS 100 UNITS/ML 10 ML VIAL SUBQ SCH (08:15)
[2020-05-15] MEDS ORDERED: DEXMEDETOMIDINE HCL 400 MCG in NACL 0.9% 96 ML IV PRN (13:20)
[2020-05-15] MEDS: NACL 0.45% 1,000 ML IV SCH (14:48)
[2020-05-16] VITALS (27 sets, daily range): BP systolic 97–153; BP diastolic 59–88
[2020-05-16] MEDS: DEXAMETHASONE 4 MG/ML VIAL IVP SCH ×2 (00:24→21:25)
[2020-05-16] MEDS: DEXMEDETOMIDINE HCL 400 MCG in NACL 0.9% 96 ML IV PRN ×3 (00:25→22:58)
[2020-05-16] MEDS: ACETAMINOPHEN 650 MG SUPP RC PRN (04:08)
[2020-05-16] MEDS: metroNIDAZOLE 500 MG/NS PREMIX 100 ML IV SCH ×3 (04:44→21:24)
[2020-05-16] MEDS: NACL 0.45% 1,000 ML IV SCH ×2 (05:50→09:02)
[2020-05-16] MEDS: INSULIN LISPRO SLIDING SCALE 100 UNITS/ML VIAL SUBQ PRN ×2 (06:51→11:54)
[2020-05-16] MEDS: BLOOD GLUCOSE MONITORING 1 DEV DEV FS SCH ×4 (06:51→21:24)
[2020-05-16 06:53] LABS: BASOPHILS # (AUTO) 0.1 K/uL (0.00-0.22); BASOPHILS % (AUTO) 0.6 % (0.0-2.0); HEMATOCRIT 36.2 % (36-48); HEMOGLOBIN 11.9 g/dL (12.0-16.0); LYMPHOCYTES # (AUTO) 0.2 K/uL (2.5-16.5); MEAN CORPUSCULAR HEMOGLOBIN 29 pg (27-31); MEAN CORPUSCULAR HGB CONC 33 g/dL (33-37); MEAN CORPUSCULAR VOLUME 88.6 fL (80-94); MONOCYTES # (AUTO) 0.3 K/uL (0.8-1.0); MONOCYTES % (AUTO) 1.5 % (1.7-9.3); NEUTROPHILS # (AUTO) 16.8 K/uL (1.8-7.7); NEUTROPHILS % (AUTO) 96.9 % (42.2-75.2); PLATELET COUNT (AUTO) 145 K/uL (140-450); RED BLOOD CELL COUNT(AUTO) 4.09 MIL/uL (4.20-5.40); RED CELL DISTRIBUTION WIDTH 15.1 % (11.6-13.7); WHITE BLOOD COUNT (AUTO) 17.3 K/uL (4.8-10.8)
[2020-05-16 06:55] LABS: ALBUMIN 3.4 g/dL (3.4-5.0); ANION GAP 12.1 (8-16); ASPARTATE AMINOTRANSFERASE 140 U/L (15-37); CARBON DIOXIDE 28.7 mmol/L (21-32); CHLORIDE 105 mmol/L (98-107); CREATININE 0.7 mg/dL (0.6-1.3); GLUCOSE 251 mg/dL (74-106); MAGNESIUM 2.3 mg/dL (1.8-2.4); PHOSPHORUS 2.5 mg/dL (2.5-4.9); POTASSIUM 3.8 mmol/L (3.5-5.1); SODIUM SERUM 142 mmol/L (136-145); TOTAL BILIRUBIN 1.3 mg/dL (0.0-1.0); UREA NITROGEN, BLOOD 23 mg/dL (7-18)
[2020-05-16] MEDS: NOREPINEPHRINE 8 MG in DEXTROSE 5% 250 ML IV PRN (08:23)
[2020-05-16] MEDS: ALBUMIN HUMAN 25% 100 ML IV SCH (08:27)
[2020-05-16] MEDS: ENOXAPARIN 80 MG/0.8 ML SYR SUBQ SCH ×2 (08:33→21:25)
[2020-05-16] MEDS: INSULIN LANTUS 100 UNITS/ML 10 ML VIAL SUBQ SCH (08:41)
[2020-05-16] MEDS ORDERED: POTASSIUM CHLORIDE 10 MEQ TABER PO SCH (15:53)
[2020-05-17] VITALS (25 sets, daily range): BP systolic 93–140; BP diastolic 54–89
[2020-05-17 06:01] LABS: BASOPHILS % (AUTO) 0.3 % (0.0-2.0); HEMOGLOBIN 11.6 g/dL (12.0-16.0); LYMPHOCYTES # (AUTO) 0.3 K/uL (2.5-16.5); LYMPHOCYTES % (AUTO) 1.6 % (20.5-51.1); MEAN CORPUSCULAR HEMOGLOBIN 29 pg (27-31); MEAN CORPUSCULAR HGB CONC 32 g/dL (33-37); MEAN CORPUSCULAR VOLUME 89.8 fL (80-94); MONOCYTES # (AUTO) 0.4 K/uL (0.8-1.0); MONOCYTES % (AUTO) 2.5 % (1.7-9.3); NEUTROPHILS # (AUTO) 15.8 K/uL (1.8-7.7); NEUTROPHILS % (AUTO) 95.6 % (42.2-75.2); PLATELET COUNT (AUTO) 157 K/uL (140-450); RED BLOOD CELL COUNT(AUTO) 4.01 MIL/uL (4.20-5.40); RED CELL DISTRIBUTION WIDTH 15.1 % (11.6-13.7); WHITE BLOOD COUNT (AUTO) 16.5 K/uL (4.8-10.8)
[2020-05-17] MEDS: BLOOD GLUCOSE MONITORING 1 DEV DEV FS SCH ×5 (06:19→21:00)
[2020-05-17 06:33] LABS: ALBUMIN 3.4 g/dL (3.4-5.0); ANION GAP 11.1 (8-16); ASPARTATE AMINOTRANSFERASE 102 U/L (15-37); CARBON DIOXIDE 33.5 mmol/L (21-32); CHLORIDE 112 mmol/L (98-107); CREATININE 0.7 mg/dL (0.6-1.3); GLUCOSE 122 mg/dL (74-106); MAGNESIUM 2.1 mg/dL (1.8-2.4); PHOSPHORUS 2.5 mg/dL (2.5-4.9); POTASSIUM 4.6 mmol/L (3.5-5.1); SODIUM SERUM 152 mmol/L (136-145); TOTAL BILIRUBIN 0.5 mg/dL (0.0-1.0); UREA NITROGEN, BLOOD 31 mg/dL (7-18)
[2020-05-17] MEDS: INSULIN LANTUS 100 UNITS/ML 10 ML VIAL SUBQ SCH (08:14)
[2020-05-17] MEDS: ENOXAPARIN 80 MG/0.8 ML SYR SUBQ SCH ×2 (08:34→20:49)
[2020-05-17] MEDS: NACL 0.45% 1,000 ML IV SCH (09:12)
[2020-05-17] MEDS ORDERED: TPN PER PHARMACY MC PRN (15:00)
[2020-05-17] MEDS: NOREPINEPHRINE 8 MG in DEXTROSE 5% 250 ML IV PRN ×2 (17:27→23:57)
[2020-05-17] MEDS: DEXTROSE 50% 50 ML SYR IVP PRN (18:35)
[2020-05-17] MEDS: DEXAMETHASONE 4 MG/ML VIAL IVP SCH (21:57)
[2020-05-18] VITALS (28 sets, daily range): BP systolic 88–135; BP diastolic 51–75
[2020-05-18] MEDS: Z-GUARD PASTE TP SCH ×2 (01:20→12:09)
[2020-05-18 06:35] LABS: BASOPHILS # (AUTO) 0.1 K/uL (0.00-0.22); BASOPHILS % (AUTO) 0.8 % (0.0-2.0); EOSINOPHILS % (AUTO) 0.1 % (0.0-4.0); HEMATOCRIT 35.7 % (36-48); HEMOGLOBIN 11.8 g/dL (12.0-16.0); LYMPHOCYTES # (AUTO) 0.2 K/uL (2.5-16.5); LYMPHOCYTES % (AUTO) 1.6 % (20.5-51.1); MEAN CORPUSCULAR HEMOGLOBIN 29 pg (27-31); MEAN CORPUSCULAR HGB CONC 33 g/dL (33-37); MEAN CORPUSCULAR VOLUME 89.3 fL (80-94); MONOCYTES # (AUTO) 0.4 K/uL (0.8-1.0); MONOCYTES % (AUTO) 2.7 % (1.7-9.3); NEUTROPHILS # (AUTO) 14.8 K/uL (1.8-7.7); NEUTROPHILS % (AUTO) 94.8 % (42.2-75.2); PLATELET COUNT (AUTO) 186 K/uL (140-450); RED CELL DISTRIBUTION WIDTH 14.5 % (11.6-13.7); WHITE BLOOD COUNT (AUTO) 15.6 K/uL (4.8-10.8)
[2020-05-18] MEDS: BLOOD GLUCOSE MONITORING 1 DEV DEV FS SCH ×2 (06:42→07:30)
[2020-05-18 07:21] LABS: ANION GAP 8.1 (8-16); ASPARTATE AMINOTRANSFERASE 95 U/L (15-37); CARBON DIOXIDE 35.3 mmol/L (21-32); CHLORIDE 112 mmol/L (98-107); CREATININE 0.6 mg/dL (0.6-1.3); GLUCOSE 71 mg/dL (74-106); MAGNESIUM 2.4 mg/dL (1.8-2.4); PHOSPHORUS 2.1 mg/dL (2.5-4.9); POTASSIUM 4.4 mmol/L (3.5-5.1); SODIUM SERUM 151 mmol/L (136-145); TOTAL BILIRUBIN 0.5 mg/dL (0.0-1.0); UREA NITROGEN, BLOOD 26 mg/dL (7-18)
[2020-05-18] MEDS: NACL 0.45% 1,000 ML IV SCH (08:08)
[2020-05-18] MEDS: ENOXAPARIN 80 MG/0.8 ML SYR SUBQ SCH ×2 (08:44→21:52)
[2020-05-18] MEDS: INSULIN LANTUS 100 UNITS/ML 10 ML VIAL SUBQ SCH (08:44)
[2020-05-18] MEDS: THERAHONEY GEL 42.5 GM TP SCH (12:09)
[2020-05-18] MEDS: DEXMEDETOMIDINE HCL 400 MCG in NACL 0.9% 96 ML IV PRN (12:38)
[2020-05-18] MEDS: DEXTROSE 50% 50 ML SYR IVP PRN (17:30)
[2020-05-18] MEDS: BLOOD GLUCOSE MONITORING 1 DEV DEV MC SCH ×2 (18:18→23:26)
[2020-05-18] MEDS: DEXTROSE IV SCH ×4 (20:08)
[2020-05-18] MEDS: MULTIVITAMIN IV SCH ×4 (20:08)
[2020-05-18] MEDS: [UNRECOGNIZED DRUG - OTHER] IV SCH ×4 (20:08)
[2020-05-18] MEDS: AMINO ACIDS IV SCH ×4 (20:08)
[2020-05-18] MEDS: DEXAMETHASONE 4 MG/ML VIAL IVP SCH (21:52)
[2020-05-18] MEDS: INSULIN LISPRO SLIDING SCALE 100 UNITS/ML VIAL SUBQ PRN (23:26)
[2020-05-19] VITALS (28 sets, daily range): BP systolic 91–140; BP diastolic 55–78
[2020-05-19] MEDS: Z-GUARD PASTE TP SCH ×2 (01:00→12:19)
[2020-05-19] MEDS: BLOOD GLUCOSE MONITORING 1 DEV DEV MC SCH ×3 (06:00→17:49)
[2020-05-19 06:48] LABS: BASOPHILS % (AUTO) 0.2 % (0.0-2.0); EOSINOPHILS % (AUTO) 0.1 % (0.0-4.0); HEMATOCRIT 36.2 % (36-48); HEMOGLOBIN 12.1 g/dL (12.0-16.0); LYMPHOCYTES # (AUTO) 0.2 K/uL (2.5-16.5); LYMPHOCYTES % (AUTO) 1.8 % (20.5-51.1); MEAN CORPUSCULAR HEMOGLOBIN 30 pg (27-31); MEAN CORPUSCULAR HGB CONC 33 g/dL (33-37); MEAN CORPUSCULAR VOLUME 88.7 fL (80-94); MONOCYTES # (AUTO) 0.5 K/uL (0.8-1.0); MONOCYTES % (AUTO) 3.8 % (1.7-9.3); NEUTROPHILS # (AUTO) 12.7 K/uL (1.8-7.7); NEUTROPHILS % (AUTO) 94.1 % (42.2-75.2); PLATELET COUNT (AUTO) 153 K/uL (140-450); RED BLOOD CELL COUNT(AUTO) 4.08 MIL/uL (4.20-5.40); RED CELL DISTRIBUTION WIDTH 14.5 % (11.6-13.7); WHITE BLOOD COUNT (AUTO) 13.5 K/uL (4.8-10.8)
[2020-05-19] MEDS: INSULIN LISPRO SLIDING SCALE 100 UNITS/ML VIAL SUBQ PRN ×3 (07:03→17:49)
[2020-05-19] MEDS: DEXMEDETOMIDINE HCL 400 MCG in NACL 0.9% 96 ML IV PRN (07:15)
[2020-05-19] MEDS: NOREPINEPHRINE 8 MG in DEXTROSE 5% 250 ML IV PRN (07:37)
[2020-05-19 07:56] LABS: ALBUMIN 2.8 g/dL (3.4-5.0); ASPARTATE AMINOTRANSFERASE 110 U/L (15-37); CARBON DIOXIDE 36.2 mmol/L (21-32); CHLORIDE 107 mmol/L (98-107); CREATININE 0.6 mg/dL (0.6-1.3); GLUCOSE 307 mg/dL (74-106); MAGNESIUM 2.3 mg/dL (1.8-2.4); PHOSPHORUS 2.5 mg/dL (2.5-4.9); POTASSIUM 4.2 mmol/L (3.5-5.1); SODIUM SERUM 145 mmol/L (136-145); UREA NITROGEN, BLOOD 24 mg/dL (7-18)
[2020-05-19 08:33] LABS: TOTAL BILIRUBIN 0.5 mg/dL (0.0-1.0)
[2020-05-19] MEDS: ENOXAPARIN 80 MG/0.8 ML SYR SUBQ SCH ×2 (08:56→21:07)
[2020-05-19] MEDS: INSULIN LANTUS 100 UNITS/ML 10 ML VIAL SUBQ SCH (09:35)
[2020-05-19] MEDS: THERAHONEY GEL 42.5 GM TP SCH (12:18)
[2020-05-19] MEDS: AMINO ACIDS IV SCH ×4 (20:00)
[2020-05-19] MEDS: [UNRECOGNIZED DRUG - OTHER] IV SCH ×4 (20:00)
[2020-05-19] MEDS: MULTIVITAMIN IV SCH ×4 (20:00)
[2020-05-19] MEDS: DEXTROSE IV SCH ×4 (20:00)
[2020-05-19] MEDS: DEXAMETHASONE 4 MG/ML VIAL IVP SCH (21:06)
[2020-05-20] VITALS (24 sets, daily range): BP systolic 92–147; BP diastolic 55–86
[2020-05-20] MEDS: BLOOD GLUCOSE MONITORING 1 DEV DEV MC SCH ×4 (00:51→18:35)
[2020-05-20] MEDS: INSULIN LISPRO SLIDING SCALE 100 UNITS/ML VIAL SUBQ PRN ×4 (00:51→18:34)
[2020-05-20] MEDS: DEXMEDETOMIDINE HCL 400 MCG in NACL 0.9% 96 ML IV PRN (00:56)
[2020-05-20] MEDS: Z-GUARD PASTE TP SCH ×2 (01:00→12:31)
[2020-05-20 06:16] LABS: BASOPHILS % (AUTO) 0.2 % (0.0-2.0); EOSINOPHILS % (AUTO) 0.3 % (0.0-4.0); HEMATOCRIT 37.8 % (36-48); HEMOGLOBIN 12.5 g/dL (12.0-16.0); LYMPHOCYTES # (AUTO) 0.2 K/uL (2.5-16.5); LYMPHOCYTES % (AUTO) 1.9 % (20.5-51.1); MEAN CORPUSCULAR HEMOGLOBIN 29 pg (27-31); MEAN CORPUSCULAR HGB CONC 33 g/dL (33-37); MEAN CORPUSCULAR VOLUME 88.4 fL (80-94); MONOCYTES # (AUTO) 0.4 K/uL (0.8-1.0); MONOCYTES % (AUTO) 3.3 % (1.7-9.3); NEUTROPHILS # (AUTO) 12.4 K/uL (1.8-7.7); NEUTROPHILS % (AUTO) 94.3 % (42.2-75.2); PLATELET COUNT (AUTO) 174 K/uL (140-450); RED BLOOD CELL COUNT(AUTO) 4.28 MIL/uL (4.20-5.40); RED CELL DISTRIBUTION WIDTH 14.4 % (11.6-13.7); WHITE BLOOD COUNT (AUTO) 13.1 K/uL (4.8-10.8)
[2020-05-20 07:08] LABS: MAGNESIUM 2.2 mg/dL (1.8-2.4); PHOSPHORUS 2.3 mg/dL (2.5-4.9)
[2020-05-20] MEDS: INSULIN LANTUS 100 UNITS/ML 10 ML VIAL SUBQ SCH (09:10)
[2020-05-20] MEDS: ENOXAPARIN 80 MG/0.8 ML SYR SUBQ SCH ×2 (09:12→21:47)
[2020-05-20 09:54] LABS: ANION GAP 7.3 (8-16); CARBON DIOXIDE 34.7 mmol/L (21-32); CHLORIDE 103 mmol/L (98-107); CREATININE 0.5 mg/dL (0.6-1.3); GLUCOSE 307 mg/dL (74-106); SODIUM SERUM 141 mmol/L (136-145); UREA NITROGEN, BLOOD 22 mg/dL (7-18)
[2020-05-20] MEDS: THERAHONEY GEL 42.5 GM TP SCH (12:30)
[2020-05-20] MEDS ORDERED: DEXTROSE 50% IV SCH ×4 (20:00)
[2020-05-20] MEDS ORDERED: [UNRECOGNIZED DRUG - OTHER] IV SCH ×4 (20:00)
[2020-05-20] MEDS ORDERED: HUMAN IV SCH ×4 (20:00)
[2020-05-20] MEDS ORDERED: INSULIN REGULAR IV SCH ×4 (20:00)
[2020-05-20] MEDS ORDERED: AMINO ACIDS 8.5% IV SCH ×4 (20:00)
[2020-05-20] MEDS: DEXAMETHASONE 4 MG/ML VIAL IVP SCH (21:47)
[2020-05-21] VITALS (30 sets, daily range): BP systolic 97–138; BP diastolic 56–81
[2020-05-21] MEDS: Z-GUARD PASTE TP SCH ×2 (01:00→13:00)
[2020-05-21] MEDS: INSULIN LISPRO SLIDING SCALE 100 UNITS/ML VIAL SUBQ PRN ×4 (05:30→23:59)
[2020-05-21] MEDS: BLOOD GLUCOSE MONITORING 1 DEV DEV MC SCH ×5 (05:30→23:58)
[2020-05-21] MEDS: DEXMEDETOMIDINE HCL 400 MCG in NACL 0.9% 96 ML IV PRN (05:50)
[2020-05-21 06:20] LABS: BASOPHILS % (AUTO) 0.2 % (0.0-2.0); EOSINOPHILS # (AUTO) 0.1 K/uL (0-0.4); EOSINOPHILS % (AUTO) 0.5 % (0.0-4.0); HEMATOCRIT 36.4 % (36-48); HEMOGLOBIN 12.5 g/dL (12.0-16.0); LYMPHOCYTES # (AUTO) 0.2 K/uL (2.5-16.5); LYMPHOCYTES % (AUTO) 2.1 % (20.5-51.1); MEAN CORPUSCULAR HEMOGLOBIN 30 pg (27-31); MEAN CORPUSCULAR HGB CONC 34 g/dL (33-37); MEAN CORPUSCULAR VOLUME 88.2 fL (80-94); MONOCYTES # (AUTO) 0.3 K/uL (0.8-1.0); MONOCYTES % (AUTO) 2.8 % (1.7-9.3); NEUTROPHILS % (AUTO) 94.4 % (42.2-75.2); PLATELET COUNT (AUTO) 178 K/uL (140-450); RED BLOOD CELL COUNT(AUTO) 4.13 MIL/uL (4.20-5.40); RED CELL DISTRIBUTION WIDTH 14.4 % (11.6-13.7); WHITE BLOOD COUNT (AUTO) 10.6 K/uL (4.8-10.8)
[2020-05-21 06:55] LABS: ANION GAP 8.1 (8-16); CHLORIDE 101 mmol/L (98-107); CREATININE 0.5 mg/dL (0.6-1.3); GLUCOSE 297 mg/dL (74-106); POTASSIUM 4.1 mmol/L (3.5-5.1); SODIUM SERUM 141 mmol/L (136-145); UREA NITROGEN, BLOOD 24 mg/dL (7-18)
[2020-05-21] MEDS: INSULIN LANTUS 100 UNITS/ML 10 ML VIAL SUBQ SCH (08:45)
[2020-05-21] MEDS: ENOXAPARIN 80 MG/0.8 ML SYR SUBQ SCH ×2 (08:48→21:06)
[2020-05-21 11:57] LABS: MAGNESIUM 1.9 mg/dL (1.8-2.4); PHOSPHORUS 2.4 mg/dL (2.5-4.9)
[2020-05-21] MEDS: THERAHONEY GEL 42.5 GM TP SCH (13:00)
[2020-05-21] MEDS ORDERED: DEXTROSE 50% IV SCH ×4 (20:00)
[2020-05-21] MEDS ORDERED: INSULIN REGULAR IV SCH ×4 (20:00)
[2020-05-21] MEDS ORDERED: HUMAN IV SCH ×4 (20:00)
[2020-05-21] MEDS ORDERED: AMINO ACIDS 8.5% IV SCH ×4 (20:00)
[2020-05-21] MEDS ORDERED: [UNRECOGNIZED DRUG - OTHER] IV SCH ×4 (20:00)
[2020-05-21] MEDS: DEXAMETHASONE 4 MG/ML VIAL IVP SCH (21:06)
[2020-05-22] VITALS (22 sets, daily range): BP systolic 49–135; BP diastolic 36–96
[2020-05-22] MEDS: Z-GUARD PASTE TP SCH ×2 (00:07→12:14)
[2020-05-22] MEDS: BLOOD GLUCOSE MONITORING 1 DEV DEV MC SCH ×2 (05:23→12:45)
[2020-05-22 06:42] LABS: HEMATOCRIT 38.5 % (36-48); HEMOGLOBIN 12.3 g/dL (12.0-16.0); MEAN CORPUSCULAR HEMOGLOBIN 29 pg (27-31); MEAN CORPUSCULAR HGB CONC 32 g/dL (33-37); MEAN CORPUSCULAR VOLUME 91.1 fL (80-94); PLATELET COUNT (AUTO) 278 K/uL (140-450); RED BLOOD CELL COUNT(AUTO) 4.22 MIL/uL (4.20-5.40); RED CELL DISTRIBUTION WIDTH 14.3 % (11.6-13.7)
[2020-05-22 06:44] LABS: MAGNESIUM 2.4 mg/dL (1.8-2.4); PHOSPHORUS 6.1 mg/dL (2.5-4.9)
[2020-05-22 06:56] LABS: CARBON DIOXIDE 38.5 mmol/L (21-32); CHLORIDE 102 mmol/L (98-107); CREATININE 0.8 mg/dL (0.6-1.3); GLUCOSE 328 mg/dL (74-106); POTASSIUM 4.5 mmol/L (3.5-5.1); SODIUM SERUM 144 mmol/L (136-145); UREA NITROGEN, BLOOD 31 mg/dL (7-18)
[2020-05-22] MEDS: ENOXAPARIN 80 MG/0.8 ML SYR SUBQ SCH (08:18)
[2020-05-22] MEDS: INSULIN LANTUS 100 UNITS/ML 10 ML VIAL SUBQ SCH (08:20)
[2020-05-22 09:06] LABS: LYMPHOCYTES % (MANUAL) 2 % (20-46); MONOCYTES % (MANUAL) 9 % (5-12)
[2020-05-22] MEDS ORDERED: DEXTROSE 10% 1,000 ML IV ONE (10:24)
[2020-05-22] MEDS ORDERED: DEXTROSE 10% 1,000 ML IV SCH (10:25)
[2020-05-22] MEDS: THERAHONEY GEL 42.5 GM TP SCH (12:42)
[2020-05-22] MEDS: INSULIN LISPRO SLIDING SCALE 100 UNITS/ML VIAL SUBQ PRN (12:45)
[2020-05-22] MEDS ORDERED: MORPHINE SULFATE 5 MG/ML VIAL IVP PRN ×2 (15:55→16:10)
[2020-05-22] MEDS ORDERED: MORPHINE SULFATE 4 MG/ML SYR IVP PRN (16:55)
[2020-05-22] MEDS ORDERED: INSULIN REGULAR IV SCH ×4 (20:00)
[2020-05-22] MEDS ORDERED: DEXTROSE 50% IV SCH ×4 (20:00)
[2020-05-22] MEDS ORDERED: HUMAN IV SCH ×4 (20:00)
[2020-05-22] MEDS ORDERED: [UNRECOGNIZED DRUG - OTHER] IV SCH ×4 (20:00)
[2020-05-22] MEDS ORDERED: AMINO ACIDS 8.5% IV SCH ×4 (20:00)
== END 2020-05-22 17:54 | DRG 177 ==
LOC: MED 14:34 → MTU 22:51 → MMU 05-12 19:30
PROVIDERS: ADMIT Hospitalist; ATTEND Hospitalist
PROC: XW033E5 Introduction of Remdesivir Anti-infective into Peripheral Vein, Percutaneous Approach, New Technology Group 5 (ICD-10-PCS; 2020-05-05)
PROC: 5A1D70Z Performance of Urinary Filtration, Intermittent, Less than 6 Hours Per Day (ICD-10-PCS; 2020-05-05)
PROC: XW13325 Transfusion of Convalescent Plasma (Nonautologous) into Peripheral Vein, Percutaneous Approach, New Technology Group 5 (ICD-10-PCS; principal; 2020-05-09)
PROC: 5A09557 Assistance with Respiratory Ventilation, Greater than 96 Consecutive Hours, Continuous Positive Airway Pressure (ICD-10-PCS; 2020-05-10)
PROC: 02HV33Z Insertion of Infusion Device into Superior Vena Cava, Percutaneous Approach (ICD-10-PCS; 2020-05-12)
PROC: B548ZZA Ultrasonography of Superior Vena Cava, Guidance (ICD-10-PCS; 2020-05-12)
DX: U07.1 COVID-19 (principal); J96.01 Acute respiratory failure with hypoxia; J12.82 Pneumonia due to coronavirus disease 2019; G93.41 Metabolic encephalopathy; A41.89 Other specified sepsis; R65.21 Severe sepsis with septic shock; D68.59 Other primary thrombophilia; Z66 Do not resuscitate; I46.9 Cardiac arrest, cause unspecified; Z51.5 Encounter for palliative care; E78.5 Hyperlipidemia, unspecified; F41.9 Anxiety disorder, unspecified; E11.65 Type 2 diabetes mellitus with hyperglycemia; R13.10 Dysphagia, unspecified; I10 Essential (primary) hypertension; Z79.82 Long term (current) use of aspirin; Z79.4 Long term (current) use of insulin; Z79.899 Other long term (current) drug therapy; Z82.49 Family history of ischemic heart disease and other diseases of the circulatory system
CPT/HCPCS: 36415; 36600; 71045; 80048; 80053; 80076; 81001; 82550; 82728; 82803; 82948; 83036; 83605; 83615; 83735; 83880; 84100; 84478; 84484; 85025; 85379; 85384; 85610; 85730; 86140; 86900; 86901; 86920; 87040; 87081; 87086; 87420; 87804; 93005; 93970; 94660; 96365; 96375; 99291; A9153; J0456; J0696; J1100; J1650; J1815; J2060; J2405; J3490; J7060; P9017; P9046; U0003